=== PATIENT | male | born 2000 | race Caucasian/White ===

== ENCOUNTER 2025-01-16 07:16 | Emergency (ER) | payer SELFPAY ==
--- NOTE | 2025-01-16 07:32 | XR_ITS ---
WS: [id number] Right wrist, 3 views, 01/16/2025 Clinical Data: pain Comparison: None. Findings: No fractures or dislocations are seen. The carpal bones are intact. There is no soft tissue swelling. The distal radius and ulna are not remarkable. No radiopaque foreign body is seen. XR/XR wrist RT min 3V* [id number] Impression: Negative right wrist.
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
[2025-01-16 07:43] VITALS: BP 130/82; PULSE 66; RESP 16; TEMP 36.7; O2SAT 97; BMI 26.9
--- NOTE | 2025-01-16 08:12 | XR_ITS ---
WS: [id number] Right hand, 3 views, 01/16/2025 Clinical Data: Puncture wound base of hypothenar eminence Comparison: None. Findings: No new fractures or dislocations are seen. There is an old fracture of the midshaft of the right fourth metacarpal. The soft tissues are unremarkable. The joint spaces are normal No radiopaque foreign body is seen. XR/XR hand RT min 3V* [id number] Impression: Negative right hand.
[2025-01-16 08:55] LABS: Basophils # 0.1 10^3/uL (0.0-0.1); Basophils % 0.5 %; Eosinophils % 0.1 %; Hematocrit 45.7 % (37-53); Lymphocytes % 17.9 %; Mean Corpuscular HGB Conc 33.7 g/dL (30-55); Mean Corpuscular Hemoglobin 30.4 pg (27-33); Mean Corpuscular Volume 90.1 fl (82-101); Mean Platelet Volume 10.3 fL (7.4-10.4); Monocytes # 0.7 10^3/uL (0.2-0.9); Monocytes % 6.6 %; Neutrophils # 8.28 10^3/uL (1.8-7.7); Neutrophils % 74.5 %; Nucleated Red Blood Cells % 0 %; Platelet Count 262 10^3/cmm (157-399); Red Blood Count 5.07 10^6/uL (3.85-5.65); Red Cell Distribution Width 12.5 % (12.1-15.1); White Blood Count 11.09 10^3/uL (3.29-11.43)
[2025-01-16] MEDS: tetanus-dipt-pertussis 0.5 mL SDV IM (09:04)
== END 2025-01-16 09:58 | disposition home or self-care (01) ==
PROVIDERS: Emergency Provider Family Medicine
DX: S61.431A Puncture wound without foreign body of right hand, initial encounter (principal); W26.8XXA Contact with other sharp object(s), not elsewhere classified, initial encounter; Z23 Encounter for immunization
CPT/HCPCS: 36415; 73110; 73130; 85025; 90471; 90715; 99284

== ENCOUNTER 2025-03-03 09:30 | Emergency (ER) | payer SELFPAY ==
[2025-03-03 09:36] VITALS: BP 143/97; PULSE 68; RESP 18; TEMP 36.8; O2SAT 98; BMI 25.8
--- NOTE | 2025-03-03 09:45 | W.ED.NECK ---
HPI - Neck Pain/Injury General: Chief Complaint: Neck Pain/Injury Stated Complaint: neck pain Time Seen by Provider: 03/03/25 09:33 History of Present Illness: 24-year-old male presents emergency room complaining of neck pain. No precipitating injury or exertional activities. He states it is improved from yesterday. Yesterday felt like he could barely move his neck at all today while reviewing his history he is turning his head left and right nodding his head without significant pain or difficulty. No previous trauma or surgery. He notes more the pain is on the right side of the neck near the base of the occiput pain radiates into the shoulders but not into the arms no weakness in the arms. Related Data Previous Rx's ?Medication ?Instructions ?Recorded diclofenac sodium 75 mg 75 mg PO Q12H PRN pain #20 tabs 03/03/25 tablet,delayed release tizanidine 4 mg tablet 4 mg PO Q6H PRN muscle spasticity 03/03/25 #20 tabs Allergies Allergy/AdvReac Type Severity Reaction Status Date / Time No Known Allergies Allergy Verified 01/16/25 07:50 Review of Systems Const: Denies: fever(s) or chills Card: Denies: chest pain Resp: Denies: dyspnea GI: Denies: abdominal pain : Denies: dysuria, urinary frequency or urinary urgency Musc: Reports: neck pain; Denies: back pain Skin/Breast: Denies: rash Physical Exam Const: COMMON NORMALS: no acute distress GENERAL APPEARANCE: cooperative and comfortable ORIENTATION/CONSCIOUSNESS: Yes awake, Yes oriented to person, Yes oriented to place and Yes oriented to time HENMT: COMMON NORMALS: normocephalic, atraumatic and hearing grossly normal bilaterally HEAD & SCALP: normocephalic and atraumatic Neck/C-Spine: OTHER: No lymphadenopathy slight decreased range of motion when rotating to the left. Otherwise full range of motion mild discomfort Resp: COMMON NORMALS: normal respiratory effort, No retractions, No use of accessory muscles and clear to auscultation bilaterally AUSCULTATION: clear to auscultation bilaterally Cardio: COMMON NORMALS: regular rate, regular rhythm and No murmurs present (Cardio) RATE: regular rate RHYTHM: regular rhythm GI: COMMON NORMALS: Soft to palpation and No hepatosplenomegaly present AUSCULTATION: Yes normoactive bowel sounds PALPATION: Yes Soft to palpation, No Tenderness to palpation present (GI), No Guarding due to palpation present (GI) and Yes No hepatosplenomegaly present Extremity: COMMON NORMALS: normal to inspection, capillary refill normal, no clubbing, cyanosis or edema, no calf tenderness and no pedal edema Neuro: SENSORIUM/ORIENTATION: Yes oriented to person, Yes oriented to place and Yes oriented to time Skin: COMMON NORMALS: no rashes or lesions noted GENERAL SKIN EXAM: no rashes or lesions noted Course Vital Signs: Vital signs: Vital Signs Temperature 98.2 F 03/03/25 09:36 Pulse Rate 68 03/03/25 11:29 Respiratory Rate 18 03/03/25 09:36 Blood Pressure 121/88 03/03/25 11:29 Pulse Oximetry 97 03/03/25 11:29 Oxygen Delivery Me thod Room Air 03/03/25 09:36 MDM - Neck Pain/Injury Medical Decision Making Pain improved after medications given still has good range of motion we will discharge patient home on diclofenac tizanidine follow-up with his primary care doctor if symptoms worsen or change. No trauma or direct injury. 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 He is going to try to find a different way to use protective gear to limit the strain on his neck. Differential Diagnosis Likely disc disorder of cervical region, cervical radiculopathy and strain of neck muscle No radiology studies performed this visit Discharge Plan Discharge Patient Disposition: Home Clinical Impression: Strain of neck muscle Qualifiers: Encounter type: initial encounter Qualified Code(s): S16.1XXA - Strain of muscle, fascia and tendon at neck level, initial encounter Condition: Stable Prescriptions: New tizanidine 4 mg tablet 4 mg PO Q6H PRN (Reason: muscle spasticity) Qty: 20 0RF Rx Instructions: do not exceed 3 doses per 24 hrs diclofenac sodium 75 mg tablet,delayed release (DR/EC) 75 mg PO Q12H PRN (Reason: pain) Qty: 20 0RF Discharge Orders: Discharge ED (Routine); Ordered 03/03/25 Ordered By: Josef Day Discharge Diet: Usual diet Discharge Activity: Resume usual activity Patient Instructions: Opioid Safety, Pain Management Activity Restrictions/Additional Instructions: Thank you for choosing [facility] for your healthcare needs today. It is very important that you follow up as instructed or that you return to the Emergency Department should you have concerns or if your condition changes or worsens in any way. You are seen in emergency room with complaint of neck pain. Based on your exam and history this sounds more like it is musculoskeletal in nature. Will discharge you home with anti-inflammatories diclofenac 1 every 12 hours as needed and muscle relaxer to use as needed. If your symptoms persist or worsen follow-up with your primary care doctor. Print Language: Norwegian Coding Level of Care Code ED Health Care Aide for Kwame Rosado
[2025-03-03] MEDS: methylPREDNISolone sod succ 125 mg/2 mL INJ IVP (09:54)
[2025-03-03] MEDS: ketorolac 30 mg/mL INJ 60 MG IM (09:55)
[2025-03-03 11:29] VITALS: BP 121/88; PULSE 68; O2SAT 97
== END 2025-03-03 11:30 | disposition home or self-care (01) ==
PROVIDERS: Emergency Provider Family Medicine
DX: S16.1XXA Strain of muscle, fascia and tendon at neck level, initial encounter (principal); X58.XXXA Exposure to other specified factors, initial encounter
CPT/HCPCS: 96372; 96374; 99284; J1885; J2919